=== PATIENT | male | born 1985 | race African-American/Black ===

== ENCOUNTER 2018-07-25 14:31 | Emergency (ER) | payer MEDICAID ==
[~2018-07-25] VITALS: Ht 180.3 cm; Wt 60.0 kg
[2018-07-25] MEDS ORDERED: ONDANSETRON HCL 4MG/2ML INJ IV STA (15:28)
[2018-07-25] MEDS ORDERED: SODIUM CHLORIDE 0.9% 1,000 ML IV ONE (15:28)
[2018-07-25 16:16] LABS: HEMATOCRIT. 36.1 % (42.0-52.0); HEMOGLOBIN. 11.3 g/dL (14.0-18.0); MEAN CORPUSCULAR HEMOGLOBIN 23.7 pg (28.0-32.0); MEAN CORPUSCULAR VOLUME 75.6 fL (80.0-94.0); MEAN PLATELET VOLUME 8.5 fl (7.4-10.4); PLATELET 143 x1000/uL (130-400); RED BLOOD CELL COUNT 4.78 mill/uL (4.7-6.1); RED CELL DISTRIBUTION WIDTH 22.4 % (11.6-14.6)
[2018-07-25 16:19] LABS: CHLORIDE 109 mEq/L (98-107)
[2018-07-25 16:21] LABS: PARTIAL THROMBOPLASTIN TIME 23.3 sec (23.4-31.0); PROTHROMBIN TIME 10.1 sec (9.1-11.1)
[2018-07-25 17:05] LABS: ETHANOL BLOOD 311 mg/dL
[2018-07-25 17:15] LABS: ATYPICAL LYMPHOCYTES 3; PLATELET ESTIMATE NORMAL
[2018-07-25 17:44] LABS: CLARITY URINE CLEAR (CLEAR); COLOR URINE YELLOW (YELLOW); KETONES URINE NEGATIVE (NEGATIVE); LEUKOCYTE ESTERASE URINE NEGATIVE (NEGATIVE); NITRITE URINE NEGATIVE (NEGATIVE); OCCULT BLOOD URINE NEGATIVE (NEGATIVE); PROTEIN URINE NEGATIVE (NEGATIVE); SPECIFIC GRAVITY URINE 1.013 (1.005-1.030); UROBILINOGEN URINE 0.2 E.U./dL (0.2-1.0)
[2018-07-25 18:02] LABS: *AMPHETAMINES SCREEN URINE NEGATIVE (NEGATIVE); *BARBITURATES SCREEN URINE NEGATIVE (NEGATIVE); *BENZODIAZEPINES SCREEN URINE NEGATIVE (NEGATIVE); *COCAINE SCREEN URINE NEGATIVE (NEGATIVE); CANNABINOID URINE SCREEN NEGATIVE (NEGATIVE); METHADONE URINE SCREEN NEGATIVE (NEGATIVE); PHENCYCLIDINE URINE SCREEN NEGATIVE (NEGATIVE)
[2018-07-25 18:03] LABS: OPIATES URINE SCREEN NEGATIVE (NEGATIVE)
[2018-07-26 04:20] VITALS: BP 145/84
== END 2018-07-26 04:25 | disposition home or self-care (01) ==
LOC: ER 14:31
DX: T51.0X1A Toxic effect of ethanol, accidental (unintentional), initial encounter (principal); G92 Toxic encephalopathy; R27.0 Ataxia, unspecified; Y90.8 Blood alcohol level of 240 mg/100 ml or more; Y92.488 Other paved roadways as the place of occurrence of the external cause
CPT/HCPCS: 36415; 70450; 71045; 80053; 80305; 80320; 81003; 82140; 83880; 84443; 84484; 85025; 85610; 85730; 93005; 96361; 96374; 99284; J2405; J7030; Z7610; G0480